=== PATIENT | female | born 1995 | race Caucasian/White ===

== ENCOUNTER 2020-06-04 10:05 | Emergency (ER) | payer OTHER ==
[~2020-06-04] VITALS: Ht 157.5 cm; Wt 83.5 kg
[2020-06-04 10:15] VITALS: BP 133/88; Ht 157.5 cm; Wt 83.5 kg
[2020-06-04 11:31] LABS: microscopic required? YES; urine erythrocyte 3+ (NEGATIVE)
[2020-06-04 11:41] LABS: BASOPHIL % 0.2 % (0-2); PLATELET COUNT 212 x10^3mcL (130-400); RED CELL DISTRIBUTION WIDTH 13.2 % (11.5-14.5)
== END 2020-06-04 13:29 | disposition home or self-care (01) ==
LOC: ED 10:05
PROVIDERS: Specialist
DX: O20.0 Threatened abortion (principal)

== ENCOUNTER → 2020-06-17 | Outpatient (CLI) | payer OTHER ==
[2020-06-17 12:42] LABS: BASOPHIL % 0.6 % (0-2); PLATELET COUNT 217 x10^3mcL (130-400); RED CELL DISTRIBUTION WIDTH 12.4 % (11.5-14.5)
[2020-06-17 13:20] LABS: GLUCOSE FASTING 73 mg/dL (70-110)
[2020-06-18 08:08] LABS: RAPID PLASMA REAGIN Non Reactive (Non Reactive)
== END | disposition home or self-care (01) ==
LOC: LB 11:37
DX: Z34.90 Encounter for supervision of normal pregnancy, unspecified, unspecified trimester (principal); N30.00 Acute cystitis without hematuria; Z31.430 Encounter of female for testing for genetic disease carrier status for procreative management

== ENCOUNTER → 2020-07-09 | Outpatient (CLI) | payer OTHER | LOC: LB 10:06 | DX: Z34.82 Encounter for supervision of other normal pregnancy, second trimester (principal) ==